=== PATIENT | male | born 1980 | race American Indian/Alaskan Native ===

== ENCOUNTER 2018-02-15 10:15 | Day surgery (SDC) | payer OTHER ==
[2018-02-15] MEDS ORDERED: ROBINUL ONE (11:00)
[2018-02-15] MEDS ORDERED: XYLOCAINE MPF 2% ONE (11:00)
[2018-02-15] MEDS ORDERED: WATER FOR IRRIG STERILE IR ONE (11:10)
[2018-02-15] MEDS ORDERED: HURRICAINE ONE 20% TOPICAL SPRAY MM ×2 (11:11→12:55)
[2018-02-15] MEDS ORDERED: XYLOCAINE 1% 20 mL ONE (11:11)
[2018-02-15] MEDS ORDERED: LIDOCAINE VISCOUS 2% ONE (11:11)
[2018-02-15] MEDS ORDERED: ADRENALIN ONE (11:12)
[2018-02-15] MEDS ORDERED: DIPRIVAN 10 MG/ML IV ONE ×2 (11:41)
[2018-02-15] MEDS ORDERED: NACL 0.9% 1000 ML 1,000 ML IV SCH (12:00)
--- NOTE | 2018-02-15 12:02 | Anesthesia Consultation ---
Anesthesia Consult and Med Hx Date of service: 02/15/18 - Airway Anesthetic Teeth Evaluation: Good ROM Head & Neck: Adequate Mental/Hyoid Distance: Adequate Mallampati Class: Class II Intubation Access Assessment: Probably Good - Pulmonary Exam CTA: Yes - Cardiac Exam Cardiac Exam: RRR - Pre-Operative Health Status ASA Pre-Surgery Classification: ASA3 Proposed Anesthetic Plan: MAC - Pulmonary Hx Smoking: No (history of TB) - Cardiovascular System Hx Hypertension: No - Central Nervous System Hx Psychiatric Problems: Yes (anxiety)
--- NOTE | 2018-02-15 12:02 | Anesthesia Day of Surgery ---
Anesthesia Day of Surgery - Day of Surgery Patient Examined: Yes Patient H&P Reviewed: Yes Patient is NPO: Yes
[2018-02-15] MEDS ORDERED: XYLOCAINE 1% 20 mL INFILTRATI ONE ×5 (12:08→12:13)
[2018-02-15] MEDS ORDERED: LIDOCAINE VISCOUS 2% PO ONE ×3 (12:35→12:40)
--- NOTE | 2018-02-15 12:37 | Short Stay Summary ---
Short Stay Documentation Date of service: 02/15/18 Narrative H&P: 37 yo with hx of positive PPD. Sputum AFB were negative x 3. He has a mass-like cluster of lymph nodes in the R hilum as well as ? smaller nodules in the parenchyma on CT chest. He is here for bronch to fully exclude active TB. He denies SOB, chest pain, cough, hemoptysis. - History Principal diagnosis: Pneumonia, Hilar LAD, r/o TB H&P: dictated (Narrative H&P typed per above) Social history: full code, no smoking, no alcohol abuse, no prescription drug abuse, no IV drug use - Allergies and Medications Current Medications: Allergies No Known Allergies Allergy (Verified 02/15/18 10:37) Home Medications Medication Instructions Recorded Confirmed Last Taken Type No Known Home Medications [No 02/15/18 02/15/18 Unknown History Reported Home Medications] Active Medications Sodium Chloride (Nacl 0.9% 1000 Ml) 1,000 mls @ 50 mls/hr IV DIRECT SANDRA Last Admin: 02/15/18 11:16 Dose: 50 mls/hr - Physical exam General appearance: no acute distress, well-nourished Integumentary: no rash HEENT: Atraumatic, PERRLA, EOMI Lungs: Clear to auscultation Breasts: deferred Heart: Regular rate, Normal S1, Normal S2 Gastrointestinal: normal, normoactive bowel sounds Male Genitourinary: deferred Rectal Exam: deferred Extremities: No edema, normal temperature, normal color Neurological: Normal gait, Normal speech, Strength at 5/5 X4 ext, Normal tone, Cranial nerves 3-12 NL - Brief post op/procedure progress note Date of procedure: 02/15/18 Pre-op diagnosis: Pneumonia, Hilar LAD, LTBI, R/o active TB Post-op diagnosis: same Procedure: Bronch w/ BAL and TBBx of RLL Anesthesia: MAC Findings: Airways grossly normal without endobronchial lesions. Surgeon: MITCHELL ADRIAN Estimated blood loss: minimal Pathology: list (BAL to cyto, BAL to micro, TBBx of RLL to pathology) Specimen disposition: to lab Condition: stable - Hospital course Hospital course: Pt. underwent bronch without complications. Recovered per usual protocol. CXR negative for PTX. f/u In office 1-2 weeks to review results. - Disposition Condition at discharge: Good Disposition: DC-01 TO HOME OR SELFCARE Short Stay Discharge Plan Activity: no restrictions Weight Bearing Status: Full Weight Bearing Diet: regular Additional Instructions: 1. F/u with me 2 weeks 2. Call office w/ questions 3. Return to ED for increased SOB, chest pain, high fevers, coughing up increasing amounts of blood, etc. Follow up with: MITCHELL ADRIAN MD [Staff Physician] - 14 Days
[2018-02-15 13:30] VITALS: BP 128/85
--- NOTE | 2018-02-15 14:08 | XRay Report ---
AP CHEST :02/15/18 12:27:00 CLINICAL: Status post lung biopsy. Pneumonia. COMPARISON:None. FINDINGS: Right hilar mass and patchy ill-defined opacity in the right lung base. The right lung is normally expanded with no pneumothorax. The left lung is normally expanded and clear. No tubes or lines. The heart and vascularity are normal given the technique of the exam. IMPRESSION: No pneumothorax after right lung biopsy.
--- NOTE | 2018-02-15 14:24 | Operative Report ---
BRONCHOSCOPY REPORT PROCEDURE: Bronchoscopy with BAL and transbronchial biopsy. INDICATIONS: Pneumonia, hilar lymphadenopathy, latent TB infection, rule out active tuberculosis. DESCRIPTION OF PROCEDURE: Informed consent was obtained and placed on the patient's chart. Risks, benefits, and alternatives were explained and he agreed to proceed. He underwent topical anesthesia of his nose and oropharynx with topical lidocaine. He was supplemented with oxygen via 100% nonrebreather face mask. He underwent MAC and please refer to separate report. Once adequate sedation was achieved, the bronchoscope was inserted via the right naris with inspection of the vocal cords, epiglottis, and trachea, all normal. Topical lidocaine was used to numb the cords and the airways. Airways were subsequently inspected and found to be unremarkable with no obvious endobronchial masses or lesions, no bleeding or secretions. Bronchoalveolar lavage was obtained from the right middle lobe and sent for cytology and microbiology. Transbronchial biopsies using fluoroscopy were obtained from the right lower lobe and sent to pathology. There was minimal bleeding, which was stopped using iced saline lavage. Oxygen saturations remained greater than 88% throughout the procedure. The bronchoscope was removed, the patient transferred to the recovery area in stable condition, and the post-bronchoscopic chest x-ray negative for pneumothorax. He will be discharged home in stable condition. DISPOSITION: Home. CONDITION: Stable. SPECIMENS: As described above. ESTIMATED BLOOD LOSS: Minimal. SPECIAL INSTRUCTIONS: 1. Follow up with me in 2 weeks to review the results. 2. Call our office with any questions. 3. Return to the ER for increased shortness of breath, chest pain, high fevers, coughing up increasing amounts of blood or any other concerning complaints. JOB# [id number] CHRISTELLE/AMELIE FORMAN
== END 2018-02-15 10:16 | disposition home or self-care (01) ==
LOC: GIO 10:15
PROVIDERS: ATTEND Internal Medicine Critical Care Medicine
DX: J18.9 Pneumonia, unspecified organism (principal); J98.11 Atelectasis; R59.1 Generalized enlarged lymph nodes; F41.9 Anxiety disorder, unspecified; Z86.11 Personal history of tuberculosis
CPT/HCPCS: 31623; 31628; 87102; 87116; 87220; 88112; 88305; 88312; J2704; J7030; J0171